=== PATIENT | female | born 1945 | race Caucasian/White ===

== ENCOUNTER → 2017-11-23 | Outpatient (CLI) | payer OTHER ==
[~2017-11-23] MED LIST: ADVIN10/60 INH; ASPEC81 PO; CLOP1TAB15 PO; LTR510 PO; METO25TA3 PO; PRLSR20 PO; RGL5 PO; SIMV20TA2 PO; [UNRECOGNIZED DRUG - OTHER]
--- NOTE | 2017-11-23 11:27 | DIAGNOSTIC IMAGING REPORT ---
CHEST 2 VIEWS ROUTINE CLINICAL HISTORY: J20.9 Acute bronchitis with [id number] dyspnea COMPARISON STUDY: 09/10/2013 FINDINGS: The bones soft tissues and hemidiaphragms are normal. The cardiomediastinal silhouette is normal. The lungs are clear. The pulmonary vasculature is normal. IMPRESSION: Negative chest. The above report was generated using voice recognition software. It may contain grammatical, syntax or spelling errors. Electronically signed by: Tom Martinez M.D. 11/23/2017 11:26 AM Dictated Date/Time: 11/23/2017 11:25 AM
== END | disposition home or self-care (01) ==
LOC: C.RAD1850 11:15
PROVIDERS: ATTEND Physician Assistant Medical
DX: J20.9 Acute bronchitis, unspecified (principal)